=== PATIENT | female | born 1975 | race Hispanic/Latino ===

== ENCOUNTER 2017-04-29 15:53 | Observation (INO) | payer SELFPAY ==
[2017-04-29 17:08] LABS: #Eosinphils 0.1 thou/uL (0.0-0.7); #Monocytes 0.6 thou/uL (0.11-0.59); #Neutrophils 11.7 thou/uL (1.40-6.50); %Basophils 0.1 % (0.0-1.0); %Lymphocytes 7.3 % (21.0-51.0); %Monocytes 4.5 % (0.0-10.0); Hemoglobin 12.9 g/dL (12.0-16.0); Mean Corpuscular HGB CONC 32.1 g/dL (32.0-36.0); Mean Corpuscular Hemoglobin 28.5 pg (27.0-31.0); Mean Corpuscular Volume 88.7 fl (81.0-99.0); Mean Platelet Volume 6.7 fL (7.4-10.4); Platelet Count 356 thou/uL (130-400); RBC Distribution Width 12.3 % (11.5-14.5); Red Blood Cell (RBC) Count 4.53 mill/uL (4.20-5.40); White Blood Cell (WBC) Count 13.4 thou/uL (4.8-10.8)
[2017-04-29 17:30] LABS: ALT (SGPT) 68 U/L (8-55); AST (SGOT) 69 U/L (5-34); Albumin 4.2 g/dL (3.5-5.0); Alkaline Phosphatase 107 U/L (40-150); Anion Gap 15 mmol/L (10-20); BUN (Urea Nitrogen) 9 mg/dL (7.0-18.7); Bilirubin, Total 0.5 mg/dL (0.2-1.2); CRP (Inflammatory) 6.44 mg/dL (= or < 0.5); Calc. Creatinine Clearance 0 mL/min (70-130); Calcium 9.4 mg/dL (7.8-10.44); Carbon Dioxide 23 mmol/L (22-29); Chloride 102 mmol/L (98-107); Estimated GFR-MDRD Greater than 90; Globulin 3.6 g/dL (2.4-3.5); Glucose 114 mg/dL (70-105); Potassium 3.6 mmol/L (3.5-5.1); Protein, Total 7.8 g/dL (6.0-8.3); Sodium 136 mmol/L (136-145)
[2017-04-29] MEDS ORDERED: Water For Inject, Bacteriostat 30 ML ONE (21:51)
[2017-04-29] MEDS ORDERED: methylPREDNISolone Sod Succ/PF 125 MG/2 ML VIAL ONE (21:51)
[2017-04-29 23:03] VITALS: BMI 42.4
[2017-04-29] MEDS ORDERED: Acetaminophen 325 MG TAB PO PRN (23:10)
[2017-04-29] MEDS ORDERED: Ondansetron HCl/PF 4 MG/2 ML Vial IVP PRN (23:10)
[2017-04-29] MEDS ORDERED: Ondansetron ODT 4 MG TAB SL PRN (23:10)
[2017-04-30] MEDS: Ketorolac Tromethamine 30 MG/ML VIAL IVP PRN ×2 (07:24→14:31)
[2017-04-30] MEDS ORDERED: FLU VACC QS2017-18 36 mo. & older 0.5 ML SYRINGE IM ONE (09:00)
[2017-04-30] MEDS ORDERED: Methotrexate Sodium 2.5 MG TAB PO SCH (10:00)
[2017-04-30] MEDS ORDERED: Famotidine 20 MG TAB PO SCH (11:45)
[2017-04-30] MEDS: Eucerin (Mineral Oil/Petrolatum,White) 30 gm Jar TOP PRN (16:50)
--- NOTE | 2017-04-30 18:10 | HP ---
CHIEF COMPLAINT: Extensive painful pruritic rash of about 2 months' duration. HISTORY OF PRESENT ILLNESS: This is a 42-year-old female patient who presented here with 2 months of extensive pruritic painful rash involving eventually the entire body surface area. Patient's rash s tarted about 2 months ago, initially pruritic and progressively became painful. Rash appeared to be raised and scaly. Denies any sick contact, denies any similar symptoms in the past. No fever. No h istory of any viral syndrome, prior to the rash. The patient has been treated with mupirocin and chema e Bactrim as an outpatient, but rash progressively got worse. As a result, the patient presented to the ER where patient is now being admitted for further workup. PAST MEDICAL HISTORY: Unremarkable. FAMILY HISTORY: None significantly related to the presenting illness. SOCIAL HISTORY: Denies alcohol, tobacco or illicit drug. Worked in the restaurant. ALLERGIES: To CEPHALEXIN, SULFAMETHOXAZOLE and TRAMADOL. REVIEW OF SYSTEMS: As documented in the body of the history. All the other systems reviewed were fo und not to be significantly related to the presenting illness. PHYSICAL EXAMINATION: GENERAL: The patient was found to be in some physical distress coming from the rash. VITAL SIGNS: Afebrile with temperature 97.6, pulse 79, respiratory rate 18, O2 sat 95% with blood pr essure 118/74. HEENT: Unremarkable with moist oral mucosa. Neck is supple. No conjunctival injection or icterus. CARDIOVASCULAR SYSTEM: First and second heart sounds were heard. RESPIRATORY SYSTEM: Clear to auscultation. DIGESTIVE SYSTEM: Revealed a benign abdomen with positive bowel sounds. EXTREMITIES: No peripheral edema. SKIN: Revealed extensive psoriatic looking rash covering virtually the entire extremities as well as the truncal area, right she is with well defined, circumscribed and scaly. IMPRESSION: Extensive psoriatic rash, query cause. PLAN: 1. Given the extensive nature of this rash, we will treat both topically as well as parenterally. T herefore, patient to be started on hydrocortisone cream as well as methotrexate. 2. Infectious Disease consult. 3. Patient to benefit from skin biopsy, we defer to the Infectious Disease specialist. 4. Further management to be dependent on the clinical course.
[2017-04-30 19:28] LABS: Syphilis Antibody Nonreactive (Nonreactive); Syphilis Antibody Index 0.08 S/CO (<1.00 Non-Reactive)
[2017-04-30 19:32] LABS: Hep B Surf Ag Non-Reactive S/CO (NonReactive); Thyroid Stimulating Hormone 2.7276 uIU/mL (0.35-4.94)
[2017-04-30 19:33] LABS: HBSAB Concentration 0.25 mIU/mL; Hep B Surf AB Non-Reactive (NonReactive); Hep C IgG Ab Non-Reactive (NonReactive)
[2017-04-30 19:34] LABS: HIV (1/2) Antibody/Antigen Non-Reactive (NonReactive); HIV 1/2 INDEX 0.15 S/CO (<1.00)
[2017-04-30] MEDS: Preparation H HC 1% Cream 26 GM TUBE TOP SCH (19:58)
[2017-04-30] MEDS: Famotidine 20 MG TAB PO SCH (19:58)
[2017-04-30] MEDS: HYDROcodone/Acetaminophen 5/325 mg Tablet PO PRN (20:11)
--- NOTE | 2017-05-01 00:20 | CON ---
DATE OF CONSULTATION: 04/30/2017 REASON FOR CONSULTATION: Skin eruption. HISTORY OF PRESENT ILLNESS: A 42-year-old that has no past medical history and was not taking any medication and was in her usual state until about 2 months prior to admission when she developed a scalp itching with what she thought was dandruff, but then became obvious that she had eruption in the scalp region. After that she developed those what she describes as little pustules in the appendicular skin of upper and lower extremities. Eventually saw an [facility] physician who prescribed Bactrim, which she took for 10 days. Following this, she noticed progression of the skin changes at this time with a more diffuse erythroderma involving the upper and lower extremities, chest, abdomen, and back associated with that tenderness instead of itching. She persisted with scalp changes as noted previously without any notification, because of this was admitted. PAST MEDICAL HISTORY: Otherwise, negative. MEDICATIONS: She was not taking any medication before this. SOCIAL HISTORY: She works in [employer] occupation up until this illness, never smoker. , lives in [place]. No alcoholic beverage use or drug use. FAMILY HISTORY: Noncontributory. CURRENT MEDICATION LIST: Hydrocortisone cream, [place], Pepcid, methotrexate, sodium chloride, Eucerin cream. PHYSICAL EXAMINATION: VITAL SIGNS: T-max 99, she is currently 97.9, blood pressure 130/80, pulse 80, respirations 18-20, O2 sat 97%. SKIN: Starts with a scalp with quite prominent scalp eruption with hyperkeratosis and some element of erythema in the entire scalp region and then she had diffused erythroderma with areas of annular formation particularly in the lower extremities at the border of the erythematous patches. In nail bed, this is preserved that the palmar and plantar aspect only minor areas of macular erythema in the hands, very faint. No lymphadenopathy. HEENT: Ocular movements conjugate. No conjunctival involvement and oral mucosa is normal. Teeth in very pretty good shape. NECK: Supple. No jugular vein distention. No thyromegaly or carotid bruits. LUNGS: Symmetric, clear breath sounds. HEART: S1, S2, regular rate. No S3 or S4. ABDOMEN: Soft, not distended or tender. No ascites. No bladder distention. EXTREMITIES: No joint inflammatory activity. No edema. Pulses are 1+ in dorsalis pedis. Plantar responses are flexure. NEUROLOGIC: Nonfocal neurological exam including cognitive function. LABORATORY DATA: White cell count 13.4, hemoglobin 12.9, platelets 356, 87% neutrophils. Sodium 136, creatinine 0.7, glucose 114. AST 69, ALT 68. CRP 6.44, albumin 4.2, globulin 3.6. No radiology studies are available. ASSESSMENT: Chronic scalp exfoliated rash with plaque-like areas of erythema with quite pronounced hyperkeratosis and exfoliation now with this erythroderma with some areas of annular distribution in the lower extremities. DISCUSSION: The differential diagnosis includes psoriasis in the scalp and then potentially superimposed drug eruption following the initiation of Bactrim with a polymorphic drug eruption following that sulfonamide exposure. She may have presented initially with psoriasis with scalp manifestations and has initial prominent finding and then associated with guttate psoriasis. No pictures are available from that phase, so we cannot make a judgment in that regard, but certainly, now the possibility of drug eruption needs to be taken to account and is the #1 concern at this point in time. The corticosteroids may help manage both possibilities, and I would advise that for the time being. A skin biopsy may be needed, as if there is no improvement in subsequent days since we need to consider possibility of T-cell lymphoproliferative disorders as well as other primary skin conditions. Systemic lupus erythematosus is not likely, we will need to rule out syphilis and HIV infection as well. MTDD
[2017-05-01 04:32] LABS: #Eosinphils 0.2 thou/uL (0.0-0.7); #Lymphocytes 1.5 thou/uL (1.20-3.40); #Monocytes 0.8 thou/uL (0.11-0.59); %Basophils 0.2 % (0.0-1.0); %Eosinophils 1.2 % (0.0-10.0); %Monocytes 6.2 % (0.0-10.0); %Neutrophils 81.3 % (42.0-75.0); Hemoglobin 10.7 g/dL (12.0-16.0); Mean Corpuscular HGB CONC 31.3 g/dL (32.0-36.0); Mean Corpuscular Hemoglobin 28.3 pg (27.0-31.0); Mean Corpuscular Volume 90.4 fl (81.0-99.0); Platelet Count 335 thou/uL (130-400); RBC Distribution Width 12.3 % (11.5-14.5); Red Blood Cell (RBC) Count 3.77 mill/uL (4.20-5.40); White Blood Cell (WBC) Count 13.5 thou/uL (4.8-10.8)
[2017-05-01 08:18] LABS: Antinuclear AB Negative (Negative)
[2017-05-01] MEDS: Eucerin (Mineral Oil/Petrolatum,White) 30 gm Jar TOP PRN (09:20)
[2017-05-01] MEDS: predniSONE 20 MG TAB PO SCH (09:20)
[2017-05-01] MEDS: Preparation H HC 1% Cream 26 GM TUBE TOP SCH ×2 (09:20→19:56)
[2017-05-01] MEDS: Famotidine 20 MG TAB PO SCH ×2 (09:21→19:56)
[2017-05-01] MEDS: HYDROcodone/Acetaminophen 5/325 mg Tablet PO PRN ×2 (09:22→20:10)
--- NOTE | 2017-05-01 15:45 | PRG ---
DATE OF SERVICE: 05/01/2017 SUBJECTIVE: Ms. Carroll is about the same, but the face and the chest eruption has improved. The legs are still bothering her with a lot of pruritus and burning sensation. No headaches, no respiratory symptoms or abdominal pain, no sore throat, no visual problems. OBJECTIVE: Vital signs are normal. The eruption in the chest and face is improving. The leg one st ill has the quite pronounced serpiginous eruption, almost like erythema marginatum pattern. LABORATORY DATA: The white cell count is 13.5, hemoglobin 10.7, platelets 335, 81% neutrophils. Sod ium 136, creatinine 0.7 with AST 69 and ALT 68. SALMA screen was negative and hepatitis serology negat nabeel. The patient is currently on topical hydrocortisone, taking prednisone in the morning. ASSESSMENT AND DISCUSSION: Chronic scalp exfoliative rash with Tyler like areas with now a diffuse e rythroderma with some areas in the lower extremities with a more serpiginous pattern. Again with a p ossibility of chronic form of psoriasis in the scalp and now with a possible drug reaction after admi nistration of Bactrim for 10 days. Continue prednisone as currently.
--- NOTE | 2017-05-01 18:55 | PDOC.PN ---
- Subjective Encounter Start Date: 05/01/17 Encounter Start Time: 18:53 Subjective: seen and examined no new complaint - Objective Resuscitation Status: Resuscitation Status FULL:Full Resuscitation Vital Signs & Weight: Vital Signs (12 hours) Temp Pulse Resp BP BP Pulse Ox 05/01/17 16:00 98.2 F 68 19 133/82 100 05/01/17 11:17 98.1 F 95 19 114/73 99 05/01/17 08:00 97.6 F 85 19 130/81 99 Weight Weight 203 lb 1 oz I&O: 04/30/17 05/01/17 05/02/17 06:59 06:59 06:59 Intake Total 480 312 Balance 480 312 Result Diagrams: 05/01/17 03:15 04/29/17 16:55 Phys Exam - Physical Examination Constitutional: NAD HEENT: PERRLA, moist MMs, sclera anicteric, TM's clear Neck: no nodes, no JVD, supple, full ROM Respiratory: no wheezing, no rales, no rhonchi, clear to auscultation bilateral Cardiovascular: RRR, no significant murmur Gastrointestinal: soft, non-tender Neurological: non-focal Psychiatric: normal affect, A&O x 3 Deviation from normal: Diffuse rash Dx/Plan (1) Diffuse papular rash Code(s): R21 - RASH AND OTHER NONSPECIFIC SKIN ERUPTION Status: Acute (2) Diffuse rash Status: Acute (3) 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
[2017-05-02] MEDS: Famotidine 20 MG TAB PO SCH ×2 (08:11→19:21)
[2017-05-02] MEDS: predniSONE 20 MG TAB PO SCH (08:11)
[2017-05-02] MEDS: Preparation H HC 1% Cream 26 GM TUBE TOP SCH ×2 (08:13→19:21)
[2017-05-02] MEDS: HYDROcodone/Acetaminophen 5/325 mg Tablet PO PRN ×2 (10:07→19:21)
--- NOTE | 2017-05-02 14:41 | PDOC.PN ---
- Subjective Encounter Start Date: 05/02/17 Encounter Start Time: 14:39 Patient seen and examined. No new complaints. No overnight events. rash and itching better per the patient. - Objective Resuscitation Status: Resuscitation Status FULL:Full Resuscitation MAR Reviewed: Yes Vital Signs & Weight: Vital Signs (12 hours) Temp Pulse Resp BP BP Pulse Ox 05/02/17 08:00 98.6 F 84 20 118/72 126/82 99 Weight Weight 203 lb 1 oz I&O: 05/01/17 05/02/17 05/03/17 06:59 06:59 06:59 Intake Total 312 360 480 Balance 312 360 480 Result Diagrams: 05/01/17 03:15 04/29/17 16:55 Phys Exam - Physical Examination Constitutional: NAD HEENT: sclera anicteric Neck: supple Respiratory: no wheezing, no rales Cardiovascular: RRR Gastrointestinal: soft Musculoskeletal: no edema Neurological: non-focal, moves all 4 limbs Psychiatric: normal affect Deviation from normal: rash present Dx/Plan (1) Diffuse papular rash Code(s): R21 - RASH AND OTHER NONSPECIFIC SKIN ERUPTION Status: Acute (2) Diffuse rash Status: Acute (3) Drug reaction Code(s): T88.7XXA - UNSP ADVERSE EFFECT OF DRUG OR MEDICAMENT, INIT ENCNTR Status: Acute (4) 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 itching and rash better. continue steroids. need outpt f/u with dermatology.
[2017-05-03] MEDS: HYDROcodone/Acetaminophen 5/325 mg Tablet PO PRN ×2 (02:12→08:13)
[2017-05-03] MEDS: Famotidine 20 MG TAB PO SCH (08:13)
[2017-05-03] MEDS: predniSONE 20 MG TAB PO SCH (08:13)
[2017-05-03 09:13] VITALS: BP 117/79; TEMP 98.2
[2017-05-03] MEDS: Preparation H HC 1% Cream 26 GM TUBE TOP SCH (10:10)
--- NOTE | 2017-05-03 15:06 | PDOC.PN ---
- Subjective Encounter Start Date: 05/03/17 Encounter Start Time: 15:05 Patient seen and examined. No new complaints. No overnight events. feeling better and wants to go home. - Objective Resuscitation Status: Resuscitation Status FULL:Full Resuscitation MAR Reviewed: Yes Vital Signs & Weight: Vital Signs (12 hours) Temp Pulse Resp BP Pulse Ox 05/03/17 08:00 98.2 F 72 18 117/79 98 Weight Weight 203 lb 1 oz I&O: 05/02/17 05/03/17 05/04/17 06:59 06:59 06:59 Intake Total 360 970 480 Balance 360 970 480 Result Diagrams: 05/01/17 03:15 04/29/17 16:55 Phys Exam - Physical Examination Constitutional: NAD HEENT: sclera anicteric Neck: supple Respiratory: no wheezing, no rales Cardiovascular: RRR Gastrointestinal: soft Musculoskeletal: no edema Neurological: non-focal, moves all 4 limbs Psychiatric: normal affect, A&O x 3 Deviation from normal: rash present Dx/Plan (1) Diffuse papular rash Code(s): R21 - RASH AND OTHER NONSPECIFIC SKIN ERUPTION Status: Acute (2) Diffuse rash Status: Acute (3) Drug reaction Code(s): T88.7XXA - UNSP ADVERSE EFFECT OF DRUG OR MEDICAMENT, INIT ENCNTR Status: Acute (4) 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 Dc home on po steroids. case discussed with Dr Bryan. f/u with Dr Bryan in one week. Work note given. Need Op derm f/u.
--- NOTE | 2017-05-04 02:30 | DIS ---
DATE OF ADMISSION: 04/29/2017 DATE OF DISCHARGE: 05/03/2017 DISCHARGE DIAGNOSES: 1. Extensive skin rash with itching, etiology unclear, steroid responsive. 2. History of psoriasis. CONSULTATIONS: Yobani Bryan MD PROCEDURES: None. HOSPITAL COURSE: This is a 42-year-old female with no significant past medical history came pa inful rash for a couple of months and was evaluated and she was started on steroids with improvement. She wanted to go home. She was also evaluated by Dr. Bryan, and was okay with discharging her home with close followup with him as outpatient. The patient is unfunded, does not have any primary care physician. The patient was advised to find a mds rn and primary care physician. DISCHARGE MEDICATIONS: Prednisone 40 mg p.o. daily, hydrocortisone cream applied b.i.d., Pepcid 20 p .o. b.i.d. CONDITION ON DISCHARGE: Stable. DISPOSITION: To home. DISCHARGE FOLLOWUP: With Dr. Bryan in 1 week. The patient needs to find a primary care physician an d possibly a mds rn as outpatient if symptoms recur or if not getting better. The patient and family understand. The patient was given counseling in Latvian through a family member.
== END 2017-05-03 16:54 | disposition home or self-care (01) ==
LOC: ERS 15:53 → T4-B 21:45
PROVIDERS: ADMIT Family Medicine; ATTEND Family Medicine
DX: R21 Rash and other nonspecific skin eruption (principal); L40.9 Psoriasis, unspecified; L30.8 Other specified dermatitis; T88.7XXA Unspecified adverse effect of drug or medicament, initial encounter; Z79.52 Long term (current) use of systemic steroids; Z88.1 Allergy status to other antibiotic agents; Z88.2 Allergy status to sulfonamides; Z79.899 Other long term (current) drug therapy
CPT/HCPCS: 36415; 80053; 84443; 85025; 86038; 86140; 86706; 86780; 86803; 87340; 87389; 96365; 96375; 96376; A4216; G0378; J1885; J2930; J3370; J7506; J8610

== ENCOUNTER 2022-07-14 20:46 | Inpatient (IN) | payer SELFPAY ==
[2022-07-14] MEDS ORDERED: Dexamethasone 4 mg/ml Vial ONE (21:19)
[2022-07-14] MEDS ORDERED: Cefepime 2 GM VIAL ONE (21:19)
[2022-07-14 21:48] LABS: #Eosinphils 0.2 thou/uL (0.0-0.7); #Lymphocytes 1.1 thou/uL (1.20-3.40); #Monocytes 0.7 thou/uL (0.11-0.59); #Neutrophils 8.8 thou/uL (1.40-6.50); %Basophils 0.2 % (0.0-1.0); %Eosinophils 2.3 % (0.0-10.0); %Lymphocytes 9.9 % (21.0-51.0); %Monocytes 6.1 % (0.0-10.0); %Neutrophils 81.6 % (42.0-75.0); Hemoglobin 12.7 g/dL (12.0-16.0); Mean Corpuscular HGB CONC 31.6 g/dL (32.0-36.0); Mean Corpuscular Hemoglobin 30.1 pg (27.0-31.0); Mean Corpuscular Volume 95.3 fl (78.0-98.0); Platelet Count 385 10x3/uL (130-400); RBC Distribution Width 12.1 % (11.5-14.5); Red Blood Cell (RBC) Count 4.22 mill/uL (4.20-5.40); White Blood Cell (WBC) Count 10.8 10x3/uL (4.8-10.8)
[2022-07-14 22:02] LABS: ALT (SGPT) 13 U/L (8-55); AST (SGOT) 17 U/L (5-34); Albumin 4.3 g/dL (3.5-5.0); Alkaline Phosphatase 101 U/L (40-110); Anion Gap 13 mmol/L (10-20); BUN (Urea Nitrogen) 6 mg/dL (7.0-18.7); Bilirubin, Total 0.3 mg/dL (0.2-1.2); Calc. Creatinine Clearance 0 mL/min (70-130); Calcium 9.3 mg/dL (7.8-10.44); Carbon Dioxide 29 mmol/L (22-29); Chloride 103 mmol/L (98-107); Estimated GFR 88; Globulin 3.4 g/dL (2.4-3.5); Glucose 110 mg/dL (70-105); Potassium 3.7 mmol/L (3.5-5.1); Protein, Total 7.7 g/dL (6.0-8.3); Sodium 141 mmol/L (136-145)
[2022-07-14] MEDS ORDERED: Vancomycin 1 GM/200 ML (FROZEN) BAG ONE (22:16)
[2022-07-14] MEDS ORDERED: Ondansetron PF 4 MG/2 ML Vial IVP PRN (23:00)
[2022-07-14] MEDS ORDERED: Acetaminophen 325 MG TAB PO PRN (23:00)
[2022-07-14 23:04] LABS: SARS-CoV-2 NAA Rapid Test Not Detected (NotDetected)
[2022-07-14 23:46] LABS: Bacteria/HPF None Seen HPF (None Seen); Bilirubin Negative (Negative); Blood, Urine 1+ (Negative); Clarity Clear (Clear); Glucose, Urine (Dipstick) Normal (Negative); Ketone, Urine Negative (Negative); Leukocyte 25 Leu/uL (Negative); Nitrite Negative (Negative); Protein, Urine (Dipstick) Negative (Neg-Trace); RBC/HPF 0-3 HPF (0-3); Specific Gravity, Urine 1.011 (1.002-1.036); Squamous Epithelial 0-3 HPF (0-3); Urobilinogen Normal mg/dL (Less than 2)
[2022-07-15] MEDS ORDERED: Boostrix 0.5 ML (Tdap) VIAL (>/=7 yrs of age) ONE (00:14)
[2022-07-15 00:44] VITALS: BMI 57.9
[2022-07-15] MEDS ORDERED: Vancomycin 1 GM in Premix Bag 1 BAG IVPB SCH (00:45)
[2022-07-15 07:59] LABS: #Lymphocytes 0.6 thou/uL (1.20-3.40); #Monocytes 0.1 thou/uL (0.11-0.59); #Neutrophils 7.6 thou/uL (1.40-6.50); %Eosinophils 0.1 % (0.0-10.0); %Lymphocytes 6.8 % (21.0-51.0); %Monocytes 1.7 % (0.0-10.0); %Neutrophils 91.4 % (42.0-75.0); Hemoglobin 12.1 g/dL (12.0-16.0); Mean Corpuscular HGB CONC 31.1 g/dL (32.0-36.0); Mean Corpuscular Hemoglobin 29.7 pg (27.0-31.0); Mean Corpuscular Volume 95.4 fl (78.0-98.0); Mean Platelet Volume 7.2 fL (7.4-10.4); Platelet Count 380 10x3/uL (130-400); Red Blood Cell (RBC) Count 4.07 mill/uL (4.20-5.40); White Blood Cell (WBC) Count 8.3 10x3/uL (4.8-10.8)
[2022-07-15] MEDS ORDERED: predniSONE 20 MG TAB PO SCH (08:00)
[2022-07-15 08:17] LABS: Anion Gap 11 mmol/L (10-20); BUN (Urea Nitrogen) 8 mg/dL (7.0-18.7); Calc. Creatinine Clearance 147 mL/min (70-130); Calcium 8.6 mg/dL (7.8-10.44); Carbon Dioxide 24 mmol/L (22-29); Chloride 110 mmol/L (98-107); Estimated GFR 109; Glucose 153 mg/dL (70-105); Potassium 3.9 mmol/L (3.5-5.1); Sodium 141 mmol/L (136-145)
[2022-07-15] MEDS ORDERED: FLU VACC QS2022-23(6MOS UP)/PF 60 MCG/0.5 ML SYRINGE IM ONE (09:00)
[2022-07-15] MEDS ORDERED: Cefepime 1 GM in Sodium Chloride 0.9% 100 ML IVPB SCH (09:00)
[2022-07-15 09:14] LABS: Hemoglobin A1c 5.6 % (4.0-6.0)
[2022-07-15] MEDS: methylPREDNISolone Sod Succ/PF 125 MG/2 ML VIAL IVP SCH ×3 (09:20→20:05)
[2022-07-15 09:34] LABS: Bacteria/HPF None Seen HPF (None Seen); Bilirubin Negative (Negative); Blood, Urine Trace (Negative); CAUTI Indications for Culture Fever or rigors; Clarity Clear (Clear); Glucose, Urine (Dipstick) Normal (Negative); Ketone, Urine Negative (Negative); Leukocyte 25 Leu/uL (Negative); Nitrite Negative (Negative); Protein, Urine (Dipstick) Negative (Neg-Trace); RBC/HPF 0-3 HPF (0-3); Specific Gravity, Urine 1.011 (1.002-1.036); Squamous Epithelial 0-3 HPF (0-3); Urobilinogen Normal mg/dL (Less than 2)
[2022-07-15 09:35] LABS: Urine Culture Reflex No No
[2022-07-15] MEDS: Cefepime 2 GM in Sodium Chloride 0.9% 100 ML IVPB SCH (20:11)
[2022-07-16] MEDS ORDERED: VANCOMYCIN 750 MG/250 ML BAG 750 MG in Sodium Chloride 0.9% 250 ML 250 ML IVPB SCH (01:00)
[2022-07-16] MEDS: methylPREDNISolone Sod Succ/PF 125 MG/2 ML VIAL IVP SCH ×3 (03:03→14:16)
[2022-07-16 07:54] LABS: Hemoglobin 12.4 g/dL (12.0-16.0); Mean Corpuscular HGB CONC 32.2 g/dL (32.0-36.0); Mean Corpuscular Hemoglobin 30.6 pg (27.0-31.0); Mean Platelet Volume 7.6 fL (7.4-10.4); Platelet Count 389 10x3/uL (130-400); RBC Distribution Width 12.1 % (11.5-14.5); Red Blood Cell (RBC) Count 4.06 mill/uL (4.20-5.40); White Blood Cell (WBC) Count 16.1 10x3/uL (4.8-10.8)
[2022-07-16 07:58] LABS: ALT (SGPT) 9 U/L (8-55); AST (SGOT) 13 U/L (5-34); Albumin 3.5 g/dL (3.5-5.0); Alkaline Phosphatase 88 U/L (40-110); Anion Gap 15 mmol/L (10-20); BUN (Urea Nitrogen) 7 mg/dL (7.0-18.7); Bilirubin, Total Less than 0.2 mg/dL (0.2-1.2); CRP (Inflammatory) 2.89 mg/dL (= or < 0.5); Calc. Creatinine Clearance 152 mL/min (70-130); Calcium 8.8 mg/dL (7.8-10.44); Carbon Dioxide 19 mmol/L (22-29); Cardiac Risk 4.5 (Less than 4.5); Chloride 109 mmol/L (98-107); Cholesterol 156 mg/dl (< 200 Desired); Estimated GFR 110; Globulin 3.4 g/dL (2.4-3.5); Glucose 145 mg/dL (70-105); HDL Cholesterol 35 mg/dL (>60 Neg Risk); LDL Cholesterol, Calculated 105 mg/dL; Potassium 3.7 mmol/L (3.5-5.1); Protein, Total 6.9 g/dL (6.0-8.3); Sodium 139 mmol/L (136-145); Triglycerides 80 mg/dL (Less than 150)
[2022-07-16] MEDS: Cefepime 2 GM in Sodium Chloride 0.9% 100 ML IVPB SCH ×2 (08:38→20:03)
[2022-07-16 09:16] LABS: Band 7 % (5-11); Lymphocytes 13 % (21-51); MDiff Complete? YES; Monocytes 1 % (0-10); Neutrophil 79 % (42-75); Platelet Morphology Comment Appears Adequate; RBC Morphology Normal
[2022-07-16] MEDS ORDERED: Loratadine 10 MG TAB PO SCH (13:45)
[2022-07-17 00:26] LABS: Vancomycin, Trough Less than 1.1 ug/mL
[2022-07-17] MEDS: VANCOMYCIN 1.25 GM/250 ML BAG 1.25 GM in Premix Bag 1 BAG IVPB SCH ×3 (01:27→17:11)
[2022-07-17 07:36] LABS: Hemoglobin 12.1 g/dL (12.0-16.0); Mean Corpuscular HGB CONC 32.3 g/dL (32.0-36.0); Mean Corpuscular Hemoglobin 30.6 pg (27.0-31.0); Mean Corpuscular Volume 94.7 fl (78.0-98.0); Mean Platelet Volume 7.6 fL (7.4-10.4); Platelet Count 378 10x3/uL (130-400); RBC Distribution Width 12.1 % (11.5-14.5); Red Blood Cell (RBC) Count 3.95 mill/uL (4.20-5.40); White Blood Cell (WBC) Count 14.3 10x3/uL (4.8-10.8)
[2022-07-17] MEDS: Loratadine 10 MG TAB PO SCH (08:47)
[2022-07-17] MEDS: Cefepime 2 GM in Sodium Chloride 0.9% 100 ML IVPB SCH ×2 (08:47→20:09)
[2022-07-17] MEDS ORDERED: predniSONE 50 MG TAB PO SCH (09:00)
[2022-07-17 10:59] LABS: Band 5 % (5-11); Lymphocytes 12 % (21-51); MDiff Complete? YES; Monocytes 2 % (0-10); Neutrophil 80 % (42-75); Platelet Morphology Comment Appears Adequate; RBC Morphology Normal; Reactive Lymphocytes 1 % (0-10)
[2022-07-18 00:43] LABS: Vancomycin, Trough 21.8 ug/mL
[2022-07-18] MEDS: VANCOMYCIN 1.25 GM/250 ML BAG 1.25 GM in Premix Bag 1 BAG IVPB SCH (01:47)
[2022-07-18] MEDS ORDERED: Vancomycin 1.5 GRAM/300 ML BAG 1.5 GM in Premix Bag 1 BAG IVPB SCH (06:00)
[2022-07-18] MEDS ORDERED: predniSONE 20 MG TAB PO SCH (08:00)
[2022-07-18] MEDS: Cefepime 2 GM in Sodium Chloride 0.9% 100 ML IVPB SCH (09:47)
[2022-07-18] MEDS: Loratadine 10 MG TAB PO SCH (09:47)
[2022-07-18 12:14] VITALS: BP 142/79; TEMP 97.7
== END 2022-07-18 15:24 | disposition home or self-care (01) | DRG 872 ==
LOC: ERS 20:46 → T4-B 22:42
PROVIDERS: ADMIT Internal Medicine; ATTEND Internal Medicine
DX: A41.9 Sepsis, unspecified organism (principal); L03.116 Cellulitis of left lower limb; L03.115 Cellulitis of right lower limb; Z20.822 Contact with and (suspected) exposure to COVID-19; L40.8 Other psoriasis; Z88.1 Allergy status to other antibiotic agents; Z28.21 Immunization not carried out because of patient refusal; Z88.2 Allergy status to sulfonamides; Z79.899 Other long term (current) drug therapy; Z79.52 Long term (current) use of systemic steroids
CPT/HCPCS: 36415; 71045; 80048; 80053; 80061; 80202; 81001; 81003; 81015; 83036; 83605; 83880; 84145; 84484; 85025; 85652; 86140; 87040; 87077; 87149; 90715; 93005; 93306; 93970; 96365; 96367; 96375; J0692; J1100; J1650; J2930; J3370; J3370-JW; J3490; J7050; J7512

== ENCOUNTER 2023-05-23 16:11 | Emergency (ER) | payer SELFPAY ==
[2023-05-23] MEDS ORDERED: Lidocaine 1% w/Epinephrine 1:100K 20 ML VIAL ONE (16:35)
== END 2023-05-23 19:16 | disposition home or self-care (01) ==
LOC: ERS 16:11
DX: I83.892 Varicose veins of left lower extremity with other complications (principal); I10 Essential (primary) hypertension
CPT/HCPCS: 99283

== ENCOUNTER 2023-10-26 01:46 | Emergency (ER) | payer SELFPAY | END 2023-10-26 03:16 | disposition home or self-care (01) | LOC: ERS 01:46 | DX: I83.891 Varicose veins of right lower extremity with other complications (principal); I10 Essential (primary) hypertension | CPT/HCPCS: 12001; 99283 ==

== ENCOUNTER 2023-11-04 10:23 | Emergency (ER) | payer SELFPAY ==
[2023-11-04 12:03] LABS: #Basophils Less than 0.03 10x3/uL (0.0-0.2); %Basophils 0.2 % (0.0-1.0); %Eosinophils 0.7 % (0.0-10.0); %Lymphocytes 9.3 % (21.0-51.0); %Monocytes 5.9 % (0.0-10.0); %Neutrophils 83.7 % (42.0-75.0); Hematocrit 39.1 % (36.0-47.0); Hemoglobin 12.7 g/dL (12.0-16.0); Mean Corpuscular HGB CONC 32.5 g/dL (32.0-36.0); Mean Corpuscular Hemoglobin 30.2 pg (27.0-31.0); Mean Corpuscular Volume 92.9 fL (78.0-98.0); Mean Platelet Volume 9.4 fL (7.4-10.4); Platelet Count 314 10x3/uL (130-400); RBC Distribution Width 12.5 % (11.5-14.5); Red Blood Cell (RBC) Count 4.21 mill/uL (4.20-5.40)
[2023-11-04 12:41] LABS: CRP,High Sensitivity (Inhouse) 0.27 mg/dL (< or = 0.5)
[2023-11-04 12:42] LABS: ALT (SGPT) 23 U/L (8-55); AST (SGOT) 30 U/L (5-34); Albumin 3.3 g/dL (3.5-5.0); Alkaline Phosphatase 109 U/L (40-110); Anion Gap 12 mmol/L (10-20); BUN (Urea Nitrogen) 10 mg/dL (7.0-18.7); Bilirubin, Total 0.2 mg/dL (0.2-1.2); Calc. Creatinine Clearance 0 mL/min (70-130); Carbon Dioxide 22 mmol/L (22-29); Chloride 107 mmol/L (98-107); Estimated GFR 109; Globulin 3.7 g/dL (2.4-3.5); Glucose 112 mg/dL (70-105); Potassium 3.5 mmol/L (3.5-5.1); Sodium 137 mmol/L (136-145)
== END 2023-11-04 13:06 ==
LOC: ERS 10:23
DX: S81.801A Unspecified open wound, right lower leg, initial encounter (principal); L03.115 Cellulitis of right lower limb; I10 Essential (primary) hypertension; X58.XXXA Exposure to other specified factors, initial encounter
CPT/HCPCS: 80053; 83605; 85025; 86141; 87040; 99284